=== PATIENT | female | born 1985 ===

== ENCOUNTER 2019-11-27 07:45 | Outpatient (CLI) | payer OTHER, SELFPAY ==
[2019-11-28 01:42] LABS: COVID-19 RT-PCR UVMMC Result Negative (Negative)
== END 2019-11-27 08:05 ==
PROVIDERS: PCP Obstetrics & Gynecology Reproductive Endocrinology; Visit Provider Obstetrics & Gynecology Reproductive Endocrinology
DX: Z11.59 Encounter for screening for other viral diseases (principal); Z01.818 Encounter for other preprocedural examination
CPT/HCPCS: U0003

== ENCOUNTER 2019-12-14 08:35 | Outpatient (CLI) | payer OTHER, SELFPAY ==
[2019-12-15 11:30] LABS: COVID-19 RT-PCR UVMMC Result Negative (Negative)
== END 2019-12-14 08:55 ==
PROVIDERS: PCP Obstetrics & Gynecology Reproductive Endocrinology; Visit Provider Obstetrics & Gynecology Reproductive Endocrinology
DX: Z11.59 Encounter for screening for other viral diseases (principal)
CPT/HCPCS: U0003